=== PATIENT | male | born 1940 | race Caucasian/White ===

== ENCOUNTER 2016-10-18 16:32 | Inpatient (IN) | payer MEDICARE ==
[2016-10-18] MEDS ORDERED: IPRATROPIUM/ALBUTEROL 3 ML NEB INH STA (16:57)
[2016-10-18] MEDS ORDERED: methylPREDNISolone SUCCINATE 125 MG/2 ML VIAL IVP STA (16:57)
[2016-10-18] MEDS ORDERED: HYDROmorphone 1 MG/ML SYRINGE IVP STA ×2 (17:00→17:54)
[2016-10-18] MEDS ORDERED: IPRATROPIUM/ALBUTEROL 3 ML NEB INH ONE (17:09)
[2016-10-18] MEDS ORDERED: HYDROmorphone 1 MG/ML SYRINGE ONE ×2 (17:15→18:19)
[2016-10-18] MEDS ORDERED: methylPREDNISolone SUCCINATE 125 MG/2 ML VIAL IVP ONE (17:15)
[2016-10-18] MEDS ORDERED: diltiaZEM INJ 5 MG/ML VIAL IVP STA (17:54)
[2016-10-18] MEDS ORDERED: diltiaZEM INJ 5 MG/ML VIAL ONE (18:19)
[2016-10-18] MEDS ORDERED: POTASSIUM BICARB 25 MEQ TABLET PO STA (18:40)
[2016-10-18] MEDS ORDERED: POTASSIUM BICARB 25 MEQ TABLET PO ONE (19:03)
[2016-10-18] MEDS ORDERED: IOPAMIDOL-300 100 ML VIAL IVP ONE (19:15)
[2016-10-18] MEDS ORDERED: oxyCODONE 5 MG TABLET PO PRN (21:17)
[2016-10-18] MEDS ORDERED: ONDANSETRON ODT 4 MG TABLET TL PRN (21:17)
[2016-10-18] MEDS ORDERED: ACETAMINOPHEN 325 MG TABLET PO PRN (21:17)
[2016-10-18] MEDS ORDERED: SODIUM CHLORIDE FLUSH 0.9% 10 ML SYRINGE IVP PRN (21:17)
[2016-10-18] MEDS ORDERED: HYDROmorphone 1 MG/ML SYRINGE IVP PRN (21:17)
[2016-10-18] MEDS ORDERED: CARISOPRODOL 250 MG PO PRN (21:17)
[2016-10-18] MEDS ORDERED: ONDANSETRON 4 MG/2 ML VIAL IVP PRN (21:17)
[2016-10-18] MEDS ORDERED: HYDROcod/ACETAM 10 MG/325 MG TABLET PO PRN (21:17)
[2016-10-18] MEDS ORDERED: SODIUM CHLORIDE FLUSH 0.9% 10 ML SYRINGE IVP SCH (22:00)
[2016-10-18] MEDS ORDERED: HYDROcod/ACETAM 10 MG/325 MG TABLET ONE (23:21)
[2016-10-19] MEDS ORDERED: NS W/20 MEQ KCL 1,000 ML IV SCH (01:00)
[2016-10-19] MEDS: ALBUTEROL NEB 2.5 MG/3 ML INH SCH ×7 (01:02→21:06)
[2016-10-19] MEDS ORDERED: ALBUTEROL NEB 2.5 MG/3 ML INH ONE (01:11)
[2016-10-19] MEDS ORDERED: SODIUM CHLORIDE FLUSH 0.9% 10 ML SYRINGE IVP ONE (01:54)
[2016-10-19] MEDS ORDERED: HYDROcod/ACETAM 10 MG/325 MG TABLET ONE (05:04)
[2016-10-19] MEDS ORDERED: ONDANSETRON 4 MG/2 ML VIAL IVP PRN (05:10)
[2016-10-19] MEDS: HYDROcod/ACETAM 10 MG/325 MG TABLET PO PRN ×5 (05:16→23:20)
[2016-10-19] MEDS ORDERED: ACETAMINOPHEN 325 MG TABLET PO PRN (05:16)
[2016-10-19] MEDS ORDERED: ONDANSETRON ODT 4 MG TABLET TL PRN (05:17)
[2016-10-19] MEDS ORDERED: HYDROmorphone 1 MG/ML SYRINGE IVP PRN (05:17)
[2016-10-19] MEDS ORDERED: oxyCODONE 5 MG TABLET PO PRN (05:18)
[2016-10-19] MEDS ORDERED: SODIUM CHLORIDE FLUSH 0.9% 10 ML SYRINGE IVP PRN (05:18)
[2016-10-19] MEDS ORDERED: methylPREDNISolone SUCCINATE 125 MG/2 ML VIAL IVP SCH (06:00)
[2016-10-19] MEDS: methylPREDNISolone SUCCINATE 125 MG/2 ML VIAL IVP SCH ×3 (06:23→21:43)
[2016-10-19] MEDS: SODIUM CHLORIDE FLUSH 0.9% 10 ML SYRINGE IVP SCH ×3 (07:51→21:43)
[2016-10-19] MEDS ORDERED: POLYETHYLENE GLYCOL 3350 17 GM PACKET PO SCH (09:00)
[2016-10-19] MEDS ORDERED: ENOXAPARIN 40 MG/0.4 ML SYRINGE SUBQ SCH (09:00)
[2016-10-19] MEDS: ENOXAPARIN 40 MG/0.4 ML SYRINGE SUBQ SCH (09:42)
[2016-10-19] MEDS: POLYETHYLENE GLYCOL 3350 17 GM PACKET PO SCH (09:43)
[2016-10-19] MEDS ORDERED: MAGNESIUM HYDROXIDE 2,400 MG/30 ML UDC PO ONE ×2 (09:58→13:00)
[2016-10-19] MEDS: DOCUSATE SODIUM 250 MG CAPSULE PO SCH (12:51)
[2016-10-19] MEDS: SENNA 8.6 MG TABLET PO SCH ×2 (12:51→18:01)
[2016-10-19] MEDS: POTASSIUM CHLOR 10 MEQ/100 ML 100 ML IV SCH ×3 (14:33→18:43)
[2016-10-19] MEDS ORDERED: POTASSIUM CHLOR 10 MEQ/100 ML 100 ML IV ONE (18:26)
[2016-10-19] MEDS: CARISOPRODOL 250 MG PO PRN ×2 (18:44→23:20)
[2016-10-20] MEDS: HYDROcod/ACETAM 10 MG/325 MG TABLET PO PRN ×3 (03:22→12:25)
[2016-10-20] MEDS: methylPREDNISolone SUCCINATE 125 MG/2 ML VIAL IVP SCH (06:31)
[2016-10-20] MEDS: SODIUM CHLORIDE FLUSH 0.9% 10 ML SYRINGE IVP SCH (06:32)
[2016-10-20] MEDS ORDERED: POTASSIUM CHLORIDE 10 MEQ CAPSULE PO SCH (08:00)
[2016-10-20] MEDS: CARISOPRODOL 250 MG PO PRN (08:29)
[2016-10-20] MEDS: DOCUSATE SODIUM 250 MG CAPSULE PO SCH (08:29)
[2016-10-20] MEDS: ENOXAPARIN 40 MG/0.4 ML SYRINGE SUBQ SCH (08:30)
[2016-10-20] MEDS: SENNA 8.6 MG TABLET PO SCH (08:30)
[2016-10-20] MEDS: POLYETHYLENE GLYCOL 3350 17 GM PACKET PO SCH (08:31)
== END 2016-10-20 13:00 | disposition home or self-care (01) | DRG 190 ==
DX: J44.0 Chronic obstructive pulmonary disease with (acute) lower respiratory infection (principal); J18.9 Pneumonia, unspecified organism; J44.1 Chronic obstructive pulmonary disease with (acute) exacerbation; J44.9 Chronic obstructive pulmonary disease, unspecified; D49.1 Neoplasm of unspecified behavior of respiratory system; M54.9 Dorsalgia, unspecified; F17.200 Nicotine dependence, unspecified, uncomplicated; I48.91 Unspecified atrial fibrillation; R91.1 Solitary pulmonary nodule; R91.8 Other nonspecific abnormal finding of lung field; E27.9 Disorder of adrenal gland, unspecified; E87.6 Hypokalemia; D72.829 Elevated white blood cell count, unspecified; F17.210 Nicotine dependence, cigarettes, uncomplicated; G89.29 Other chronic pain; M54.5 Low back pain; Z79.51 Long term (current) use of inhaled steroids; Z79.899 Other long term (current) drug therapy; Z79.2 Long term (current) use of antibiotics; H91.90 Unspecified hearing loss, unspecified ear; Z66 Do not resuscitate

== ENCOUNTER 2016-11-09 09:52 | Outpatient (CLI) | payer MEDICARE ==
[2016-11-09] MEDS ORDERED: IOPAMIDOL-300 100 ML VIAL IVP ONE (10:38)
== END 2016-11-09 09:53 | disposition home or self-care (01) ==
DX: J44.9 Chronic obstructive pulmonary disease, unspecified (principal); R91.1 Solitary pulmonary nodule
CPT/HCPCS: 71275; Q9967

== ENCOUNTER 2017-04-22 17:24 | Emergency (ER) | payer MEDICARE ==
[2017-04-22] MEDS ORDERED: HYDROmorphone 1 MG/ML SYRINGE IVP STA ×3 (19:35→21:32)
[2017-04-22] MEDS ORDERED: HYDROmorphone 1 MG/ML SYRINGE ONE ×3 (19:36→21:33)
[2017-04-22] MEDS ORDERED: IOPAMIDOL-300 100 ML VIAL IVP ONE (20:21)
[2017-04-22] MEDS ORDERED: HYDROmorphone 2 MG TABLET PO STA (22:04)
[2017-04-22] MEDS ORDERED: HYDROmorphone 2 MG TABLET ONE (22:06)
[2017-04-22] MEDS ORDERED: predniSONE 20 MG TABLET PO STA (22:19)
[2017-04-22] MEDS ORDERED: predniSONE 20 MG TABLET ONE (22:21)
== END 2017-04-22 22:28 | disposition home or self-care (01) ==
DX: R07.89 Other chest pain (principal); I48.91 Unspecified atrial fibrillation; R94.31 Abnormal electrocardiogram [ECG] [EKG]; J44.9 Chronic obstructive pulmonary disease, unspecified; Z99.81 Dependence on supplemental oxygen
CPT/HCPCS: 36415; 71010; 71275; 80053; 83690; 84484; 85025; 93005; 96374; 96376; 99284; 99285; A9270; J1170; J7512; Q9967

== ENCOUNTER 2017-09-30 12:07 | Emergency (ER) | payer MEDICARE ==
[2017-09-30 13:28] LABS: BASOPHILS # (AUTO) 0.1 10^3/uL (0.0-0.1); EOSINOPHILS # (AUTO) 0.1 10^3/uL (0.0-0.7); EOSINOPHILS % (AUTO) 1.4 %; HCT - HEMATOCRIT 38.5 % (42.0-52.0); HGB - HEMOGLOBIN 13.2 g/dL (14.0-18.0); LYMPHOCYTES # (AUTO) 1.4 10^3/uL (1.5-3.5); LYMPHOCYTES % (AUTO) 15.7 %; MEAN CORPUSCULAR HGB CONC 34.2 g/dL (32.0-36.0); MEAN CORPUSCULAR VOLUME 90.6 fL (80.0-94.0); MEAN PLATELET VOLUME 8.1 fL (7.4-11.4); MONOCYTES # (AUTO) 0.8 10^3/uL (0.0-1.0); MONOCYTES % (AUTO) 9.2 %; NEUTROPHILS # (AUTO) 6.4 10^3/uL (1.5-6.6); NEUTROPHILS % (AUTO) 72.7 %; RED BLOOD COUNT 4.25 10^6/uL (4.70-6.10); RED CELL DISTRIBUTION WIDTH 15.3 % (12.0-15.0); UNCORRECTED WHITE BLOOD COUNT 8.7 x10^3/uL; WHITE BLOOD COUNT 8.7 x10^3/uL (4.8-10.8)
[2017-09-30 13:43] LABS: ALBUMIN/GLOBULIN RATIO 1.1 (1.0-2.2); BILIRUBIN,TOTAL 0.8 mg/dL (0.2-1.0); CALCIUM 9.3 mg/dL (8.5-10.3); POTASSIUM 4.1 mmol/L (3.5-5.0); TOTAL PROTEIN 7.3 g/dL (6.7-8.2)
--- NOTE | 2017-09-30 13:55 | XRAY Preliminary Report ---
Exam: XR CHEST 1 VIEW IMPRESSION: No acute disease. [facility] SITE ID: [id number]
--- NOTE | 2017-09-30 13:58 | XRAY Report ---
EXAM: CHEST RADIOGRAPHY EXAM DATE: 09/30/2017 01:42 PM. CLINICAL HISTORY: Chest pain/sob. COMPARISON: 04/22/2017. TECHNIQUE: 1 view. FINDINGS: Lungs/Pleura: Hyperexpanded, but clear. No effusion or pneumothorax. Mediastinum: Normal heart size, decreased. Upper lobe vessels not distended. Other: Osteopenia, degenerative changes. IMPRESSION: No acute disease. [facility] Referring Provider Line: [phone] SITE ID: [id number]
[2017-09-30] MEDS ORDERED: IPRATROPIUM/ALBUTEROL 3 ML NEB INH STA (14:49)
[2017-09-30] MEDS ORDERED: methylPREDNISolone SUCCINATE 125 MG/2 ML VIAL IVP STA (14:49)
[2017-09-30] MEDS ORDERED: methylPREDNISolone SUCCINATE 125 MG/2 ML VIAL ONE (14:58)
[2017-09-30] MEDS ORDERED: IPRATROPIUM/ALBUTEROL 3 ML NEB INH ONE (15:03)
--- NOTE | 2017-09-30 15:37 | ED Physician Documentation ---
History of Present Illness - Stated complaint Stated Complaint: IRREG HB/SOA - Chief complaint Chief Complaint: Cardiac - History obtained from History obtained from: Patient (pt is here for evaluation of palpitations. He staes that he has a history of a-fib, lung cancer (not on treatment) and COPD. states that he decreased his B gareth because he read that it interfears with this albuterol INH and states that he does not feel like his albuterol INH has been working. No fevers, has had a productive cough. states that he feels like his respiratory status is worse over the apst several days/weeks.) Review of Systems Constitutional: denies: Fever, Chills Cardiac: reports: Palpitations. denies: Chest pain / pressure, Pedal edema, Calf pain Respiratory: reports: Dyspnea, Cough, Wheezing. denies: Hemoptysis GI: denies: Abdominal Pain, Nausea, Vomiting, Constipation, Diarrhea : denies: Dysuria Skin: denies: Rash, Lesions Musculoskeletal: denies: Neck pain, Back pain Neurologic: denies: Generalized weakness, Headache, Head injury PD PAST MEDICAL HISTORY - Past Medical History Cardiovascular: Atrial fibrillation Respiratory: COPD, Pneumonia Endocrine/Autoimmune: None GI: None Musculoskeletal: Chronic back pain - Past Surgical History Past Surgical History: Yes General: Appendectomy, Splenectomy Ortho: Spine surgery HEENT: Tonsil/Adenoidectomy - Present Medications Home Medications: Ambulatory Orders Medication Instructions Recorded Confirmed Hydrocodone/Acetaminophen 1 tab PO Q6HR PRN 10/18/16 04/22/17 [Hydrocodone-Acetamin 10-325 mg] Albuterol Oral Soln 1 neb QID PRN 04/22/17 09/30/17 Metoprolol Tartrate 25 mg PO DAILY 04/22/17 04/22/17 Oxygen 2 Liters At Noc 04/22/17 Aspirin/Caffein/Dihydrocodeine 1 each 09/30/17 [[id number] Cap] Azithromycin 250 mg PO DAILY #6 tablet 09/30/17 Hydrocodone/Ibuprofen 1 each PO BID 09/30/17 09/30/17 [Hydrocodone-Ibuprofen 7.5-200] predniSONE [Prednisone] 60 mg PO DAILY 7 Days #21 tablet 09/30/17 - Allergies Allergies/Adverse Reactions: Allergies Allergy/AdvReac Type Severity Reaction Status Date / Time cefaclor [From Ceclor] Allergy Unknown Verified 09/30/17 12:28 clindamycin Allergy Rash Verified 09/30/17 12:28 - Social History Does the pt smoke?: No Smoking Status: Never smoker Does the pt drink ETOH?: No Does the pt have substance abuse?: No - Immunizations Immunizations are current?: Yes PD ED PE NORMAL - Vitals Vital signs reviewed: Yes - General General: Alert and oriented X 3, No acute distress, Well developed/nourished - HEENT HEENT: Atraumatic, PERRL, Moist mucous membranes, Pharynx benign - Cardiac Cardiac: RRR, No murmur, No gallop - Respiratory Respiratory: No respiratory distress. No: Clear bilaterally (bilateral rhonchi and wheezing) - Abdomen Abdomen: Soft - Derm Derm: Normal color, No rash - Neuro Neuro: Alert and oriented X 3, Normal speech Eye Opening: Spontaneous Motor: Obeys Commands Verbal: Oriented GCS Score: 15 - Psych Psych: Normal mood, Normal affect Results - Vitals Vitals: Vital Signs - 24 hr 09/30/17 09/30/17 09/30/17 12:15 12:59 13:49 Temperature 36.8 C Heart Rate 74 65 63 Respiratory 18 16 15 Rate Blood Pressure 161/80 H 144/82 H 152/73 H O2 Saturation 100 100 99 09/30/17 15:05 Temperature Heart Rate 70 Respiratory 12 Rate Blood Pressure O2 Saturation Oxygen O2 Source Room air - EKG (time done) 1216 Rate: Rate (enter#) Rhythm: NSR [place]: Normal Intervals: Normal [place], QRS normal QRS: Normal Ischemia: Normal ST segments - Labs Labs: Laboratory Tests 09/30/17 09/30/17 09/30/17 13:05 13:05 13:05 WBC 8.7 RBC 4.25 L Hgb 13.2 L Hct 38.5 L MCV 90.6 MCH 31.0 MCHC 34.2 RDW 15.3 H Plt Count 332 MPV 8.1 Neut # 6.4 Lymph # 1.4 L [place] # 0.8 Eos # 0.1 Baso # 0.1 Absolute Nucleated RBC 0.00 Nucleated RBC % 0.0 Sodium 136 Potassium 4.1 Chloride 101 Carbon Dioxide 25 Anion Gap 10.0 BUN 17 Creatinine 1.0 Estimated GFR (MDRD) 72 L Glucose 150 H Calcium 9.3 Total Bilirubin 0.8 AST 22 ALT 14 Alkaline Phosphatase 52 Troponin I < 0.04 Total Protein 7.3 Albumin 3.8 Globulin 3.5 Albumin/Globulin Ratio 1.1 Lipase 47 - Rads (name of study) CXR Radiology: Final report received PD MEDICAL DECISION MAKING - ED course Complexity details: d/w patient ED course: pt is NSR on the ECG, CXR neg, wheezing improved after neb. he has had a productive cough and has COPD. Doubt acs. he was given steroids in the ER. will send home with ABX and steroids. 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 Also informed him to continue his albuterol neb at home. he expressed understanding. Departure - Departure Disposition: Home, Self Care Clinical Impression: COPD exacerbation, Wheezing Atrial fibrillation Qualifiers: Atrial fibrillation type: paroxysmal Qualified Code(s): I48.0 - Paroxysmal atrial fibrillation Instructions: Atrial Fibrillation Dc Follow-Up: Carrillo Rodrigues MD [Primary Care Provider] - Prescriptions: Azithromycin 250 mg PO DAILY #6 tablet predniSONE [Prednisone] 60 mg PO DAILY 7 Days #21 tablet Comments: talk with your building insulation supervisor and lung doctor before making any changes to your medications. Return to the ER for any new symptoms, chest pain, shortness of breath or any other worsening symptoms.
[2017-09-30 15:59] VITALS: BP 158/62
== END 2017-09-30 15:56 | disposition home or self-care (01) ==
LOC: ED 12:07
DX: J44.1 Chronic obstructive pulmonary disease with (acute) exacerbation (principal); R06.2 Wheezing; I48.0 Paroxysmal atrial fibrillation
CPT/HCPCS: 36415; 71010; 80053; 83690; 84484; 85025; 93005; 94664; 96374; 99283; 99284; J7620

== ENCOUNTER 2018-02-20 09:09 | Outpatient (CLI) | payer MEDICARE ==
[2018-02-20] MEDS ORDERED: ALBUTEROL NEB 2.5 MG/3 ML INH PRN (10:24)
[2018-02-20] MEDS ORDERED: ALBUTEROL NEB 2.5 MG/3 ML INH ONE (10:24)
== END 2018-02-20 09:10 | disposition home or self-care (01) ==
LOC: RT 09:09
PROVIDERS: ATTEND Internal Medicine Critical Care Medicine
DX: J44.9 Chronic obstructive pulmonary disease, unspecified (principal)
CPT/HCPCS: 94060; 94729